=== PATIENT | male | born 1940 | race Caucasian/White ===

== ENCOUNTER 2016-11-06 03:39 | Emergency (ER) | payer OTHER ==
[~2016-11-06] VITALS: Ht 175.3 cm; Wt 63.5 kg
[~2016-11-06 03:39] MED LIST: ALPR0.25 PO; ASPI81TA2 PO; CHOL100013 PO; IBUP-1027 PO; MULT1TAB52 PO; POLY17PO5 PO
[2016-11-06] MEDS ORDERED: LORAZEPAM 1 MG TABLET. PO ONE (04:30)
[2016-11-06 05:06] LABS: BASO # 0.1 x10^3/uL (0.0-0.2); BASO % 0 % (0-3); EOS % 1 % (0-3); HEMATOCRIT 41.9 % (39.0-53.0); HEMOGLOBIN 13.9 g/dL (13.0-17.5); LYMPH # 0.8 x10^3/uL (1.0-4.8); LYMPH % 7 % (24-48); MEAN CORPUSCULAR HEMOGLOBIN 30 pg (25-35); MEAN CORPUSCULAR HGB CONC 33 g/dL (31-37); MEAN CORPUSCULAR VOLUME 92 fL (79-100); MONO % 9 % (0-9); NEUT % 83 % (31-73); PLATELET COUNT 168 x10^3/uL (140-400); RED BLOOD COUNT 4.56 x10^6/uL (4.30-5.70); WHITE BLOOD COUNT 12.1 x10^3/uL (4.0-11.0)
[2016-11-06 05:19] LABS: CREATININE 0.8 mg/dL (0.7-1.3); GFR 93.7; POTASSIUM 4.3 mmol/L (3.5-5.1)
[2016-11-06 05:25] LABS: ALBUMIN 4.1 g/dL (3.4-5.0); DIRECT BILIRUBIN 0.1 mg/dL (0.0-0.2); TOTAL BILIRUBIN 0.4 mg/dL (0.2-1.0); TOTAL PROTEIN 6.9 g/dL (6.4-8.2)
--- NOTE | 2016-11-06 05:41 | PHYS DOC ---
Past Medical History Past Medical History: Anxiety, Other Additional Past Medical Histor: Chronic back pain - spinal stenosis, fainting spells, prostate CA, hernia Past Surgical History: Other Additional Past Surgical Histo: Prostate surgery, hernia repair Alcohol Use: None Drug Use: None Adult General Chief Complaint Chief Complaint: ANXIETY/PANIC ATTACK HPI HPI 76-year-old male presenting to the emergency department today complaining of anxiety. He reports taking Xanax for his anxiety which improved his symptoms. He also reports having a fast heart rate but denies chest pain or shortness of breath. He has a history of anxiety however he does not have a history of fast heart rate. Onset today. Location generalized/heart/brain. Duration intermittent. No alleviating factors. Review of systems is negative for chest pain shortness of breath nausea vomiting diaphoresis abdominal pain fevers or chills. He denies cough. All other review of systems is negative unless otherwise noted in history of present illness. Review of Systems Review of Systems SEE ABOVE. Current Medications Current Medications Current Medications Medications (Trade) Dose Ordered Sig/Satish Start Time Stop Time Status Last Admin Dose Admin Lorazepam (Ativan) 1 mg 1X ONCE 11/06/16 04:30 11/06/16 04:31 DC 11/06/16 04:46 1 MG Allergies Allergies Allergies Coded Allergies Type Severity Reaction Last Updated Verified No Known Drug Allergies 08/29/14 No Physical Exam Physical Exam Constitutional: Well developed, well nourished, no acute distress, non-toxic appearance. HENT: Normocephalic, atraumatic, bilateral external ears normal, oropharynx moist, no oral exudates, nose normal. [] Eyes: PERRLA, EOMI, conjunctiva normal, no discharge. Neck: Normal range of motion, no tenderness, supple, no stridor. Cardiovascular: Mild tachycardic with a regular rhythm. No murmur present. Lungs & Thorax: Bilateral breath sounds clear to auscultation Abdomen: Bowel sounds normal, soft, no tenderness, no masses, no pulsatile masses. [] Skin: Warm, dry, no erythema, no rash. Back: No tenderness, no CVA tenderness. [] Extremities: No tenderness, no cyanosis, no clubbing, ROM intact, no edema. Neurologic: Alert and oriented X 3, normal motor function, normal sensory function, no focal deficits noted. [] Psychologic: Affect normal, judgement normal, mood normal. [] Current Patient Data Vital Signs Vital Signs Date Time Temp Pulse Resp B/P Pulse Ox O2 Delivery O2 Flow Rate FiO2 11/06/16 05:54 106 20 121/71 98 Room Air 11/06/16 03:48 98.9 98.9 Lab Values Laboratory Tests Test 11/06/16 04:50 White Blood Count 12.1x10^3/uL (4.0-11.0) H Red Blood Count 4.56x10^6/uL (4.30-5.70) Hemoglobin 13.9g/dL (13.0-17.5) Hematocrit 41.9% (39.0-53.0) Mean Corpuscular Volume 92fL (79-100) Mean Corpuscular Hemoglobin 30pg (25-35) Mean Corpuscular Hemoglobin Concent 33g/dL (31-37) Red Cell Distribution Width 13.0% (11.5-14.5) Platelet Count 168x10^3/uL (140-400) Neutrophils (%) (Auto) 83% (31-73) H Lymphocytes (%) (Auto) 7% (24-48) L Monocytes (%) (Auto) 9% (0-9) Eosinophils (%) (Auto) 1% (0-3) Basophils (%) (Auto) 0% (0-3) Neutrophils # (Auto) 10.0x10^3uL (1.8-7.7) H Lymphocytes # (Auto) 0.8x10^3/uL (1.0-4.8) L Monocytes # (Auto) 1.1x10^3/uL (0.0-1.1) Eosinophils # (Auto) 0.1x10^3/uL (0.0-0.7) Basophils # (Auto) 0.1x10^3/uL (0.0-0.2) Sodium Level 140mmol/L (136-145) Potassium Level 4.3mmol/L (3.5-5.1) Chloride Level 104mmol/L (98-107) Carbon Dioxide Level 30mmol/L (21-32) Anion Gap 6 (6-14) Blood Urea Nitrogen 13mg/dL (8-26) Creatinine 0.8mg/dL (0.7-1.3) Estimated GFR (Cockcroft-Gault) 93.7 Glucose Level 106mg/dL (70-99) H Calcium Level 9.0mg/dL (8.5-10.1) Total Bilirubin 0.4mg/dL (0.2-1.0) Direct Bilirubin 0.1mg/dL (0.0-0.2) Aspartate Amino Transferase (AST) 33U/L (15-37) Alanine Aminotransferase (ALT) 47U/L (16-63) Alkaline Phosphatase 62U/L (46-116) Troponin I Quantitative < 0.017ng/mL (0.000-0.055) Total Protein 6.9g/dL (6.4-8.2) Albumin 4.1g/dL (3.4-5.0) Lipase 168U/L (73-393) Laboratory Tests 11/06/16 04:50 Laboratory Tests 11/06/16 04:50 EKG EKG [] EKG shows sinus tachycardia. Not suggestive of ischemia. Radiology/Procedures Radiology/Procedures [] Course & Med Decision Making Course & Med Decision Making Pertinent Labs and Imaging studies reviewed. (See chart for details) [] 76-year-old male presenting to the emergency department today with anxiety and tachycardia. Vital signs otherwise were unremarkable. Afebrile. Physical exam otherwise unremarkable. EKG showed sinus tachycardia. Chest x-ray unremarkable. Blood work obtained which was unremarkable. Ativan given which improved the patient's symptoms. His heart rate did not improve with the Ativan. Patient was not in pain. Euvolemic on exam. He denied shortness of breath chest pain unilateral leg swelling hemoptysis personal or family history of blood clotting disorders. The patient was then subsequently discharged home to follow up with his primary care doctor over the next day or 2 for tachycardia. Dragon Disclaimer Dragon Disclaimer This electronic medical record was generated, in whole or in part, using a voice recognition dictation system. Departure Departure Impression: Primary Impression: Tachycardia Disposition: HOME, SELF-CARE Condition: STABLE Referrals: LUI SIMMONS MD (PCP) Patient Instructions: Nonspecific Tachycardia Additional Instructions: Thank you for allowing us to participate in your care today. Take your Xanax as needed for anxiety at home. Followup with your primary care physician in tomorrow or the next day. If you do not have a primary care provider you can ask for a list of our primary care providers. Return to the emergency department you have any new or concerning findings. This should be evaluated by the primary care physician and any necessary consulting services for continued management within a few days after discharge. Return to emergency room if you have any new or concerning symptoms including but not limited to fever, chills, nausea, vomiting, intractable pain, any new rashes, chest pain, shortness of air, uncontrolled bleeding, difficulty breathing, and/or vision loss. Scripts Lorazepam (Ativan)0.5 Mg Tablet0.5 Mg PO PRN BID PRN ANXIETY / AGITATION #5 TAB Prov:LAILA JENKINS MD 11/06/16 LAILA JENKINS MD Nov 06, 2016 05:41
[2016-11-06] MEDS ORDERED: LORA0.5T96 PO (05:48)
[2016-11-06 05:54] VITALS: BP 121/71
--- NOTE | 2016-11-06 06:42 | EKG ---
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
--- NOTE | 2016-11-06 07:12 | RAD ---
Portable AP upright view CXR: Clinical indications: Tachycardia tonight. Comparison: August 29, 2014. Findings: No acute lung infiltrate or pleural effusion or pulmonary edema or lung mass or pneumothorax is seen. The heart size, pulmonary vasculature, mediastinum and both stacia are unremarkable. Impression: No acute radiographic abnormality is seen.
== END 2016-11-06 06:10 | disposition home or self-care (01) ==
LOC: ER 03:39
DX: R00.0 Tachycardia, unspecified (principal); F41.9 Anxiety disorder, unspecified; G89.29 Other chronic pain
CPT/HCPCS: 36415; 71010; 80048; 80076; 83690; 84484; 85027; 93005; 99285-25

== ENCOUNTER → 2018-01-24 | Outpatient (CLI) | payer OTHER | END | disposition home or self-care (01) | LOC: KCIC MRI 14:28 | DX: M51.37 Other intervertebral disc degeneration, lumbosacral region (principal); M48.061 Spinal stenosis, lumbar region without neurogenic claudication; M43.16 Spondylolisthesis, lumbar region | CPT/HCPCS: 72148 ==

== ENCOUNTER → 2018-02-15 | Outpatient (CLI) | payer OTHER | END | disposition home or self-care (01) | LOC: KCIC 16:03 | DX: M43.16 Spondylolisthesis, lumbar region (principal); M40.46 Postural lordosis, lumbar region | CPT/HCPCS: 72100 ==

== ENCOUNTER → 2018-03-07 | Outpatient (CLI) | payer OTHER ==
[2018-03-08 22:16] LABS: MRSA BY PCR Negative (Negative)
== END | disposition home or self-care (01) ==
LOC: SURGPAT 13:40
DX: Z01.818 Encounter for other preprocedural examination (principal); Z86.79 Personal history of other diseases of the circulatory system
CPT/HCPCS: 87641; 93005

== ENCOUNTER 2018-03-16 10:15 | Observation (INO) | payer OTHER ==
[~2018-03-16 10:15] MED LIST changes: -ALPR0.25 PO; -ASPI81TA2 PO; -CHOL100013 PO; -IBUP-1027 PO; +LIDOCAINE 1% PF 2 ML VIAL. ID; +MIDAZOLAM HCL/PF 2 MG/2 ML VIAL.; +MORPHINE SULFATE 2 MG/ML DISP.SYRIN. IV; -MULT1TAB52 PO; +ONDANSETRON PF 4 MG/2 ML VIAL. IV; -POLY17PO5 PO; +REMIFENTANIL 2 MG VIAL. IV; +ROCURONIUM 50 MG/5 ML VIAL.; +fentaNYL PF VIAL 100 MCG/2 ML VIAL IV; +fentaNYL PF VIAL 250 MCG/5 ML VIAL
[2018-03-16] MEDS: IV RINGERS,LACTATED 1000ML 1,000 ML IV (11:11)
[2018-03-16] MEDS: BACITRACIN 50,000 UNIT in IV NORMAL SALINE 1000ML BAG 1,000 ML IRR (12:45)
[2018-03-16] MEDS: KETOROLAC 60 MG/2 ML INJ FOR OR. (12:45)
[2018-03-16] MEDS: BUPIVAC MPF-EPI 0.5%-1:200000 30 ML VIAL. INJ (12:45)
[2018-03-16] MEDS: GELATIN SPONGE SIZE 100. (12:45)
[2018-03-16] MEDS: THROMBIN TOPICAL 20,000 UNIT SPRAY.SYRN KIT TP (12:45)
[2018-03-16] MEDS ORDERED: DESFLURANE > 120 MINUTES IH (14:53)
[2018-03-16] MEDS ORDERED: MINERAL OIL/PETROLATUM,WHITE OPHTH OINT 3.5GM TUBE. (14:53)
[2018-03-16] MEDS ORDERED: LIDOCAINE 2% PF Vial for OR 5 ML VIAL. (14:53)
[2018-03-16] MEDS ORDERED: PROPOFOL 50 ML IV (14:53)
[2018-03-16] MEDS ORDERED: PROPOFOL 20 ML IV (14:53)
[2018-03-16] MEDS ORDERED: PHENYLEPHRINE 10 MG/ML VIAL. (14:54)
[2018-03-16] MEDS ORDERED: PHENYLEPHRINE in 0.9% NACL PF 1 MG/10 ML SYRINGE. IV (14:54)
[2018-03-16] MEDS ORDERED: ONDANSETRON PF 4 MG/2 ML VIAL. (14:54)
[2018-03-16] MEDS ORDERED: NEOSTIGMINE METHYLSULFATE 5 MG/5 ML SYRINGE. (14:58)
[2018-03-16] MEDS ORDERED: GLYCOPYRROLATE 1 MG/5 ML VIAL. ×2 (14:58→14:59)
[2018-03-16] MEDS: fentaNYL PF VIAL 100 MCG/2 ML VIAL IV ×4 (15:36→21:28)
[2018-03-16] MEDS: PROCHLORPERAZINE 10 MG/2 ML VIAL. IV ×2 (15:40→16:15)
[2018-03-16] MEDS ORDERED: MEPERIDINE PF 25 MG/ML VIAL. (16:35)
[2018-03-16] MEDS: MEPERIDINE PF 25 MG/ML VIAL. IV (16:44)
[2018-03-16] MEDS ORDERED: ONDANSETRON PF 4 MG/2 ML VIAL. IV (16:45)
[2018-03-16] MEDS ORDERED: diphenhydrAMINE 50 MG/ML VIAL IV (16:45)
[2018-03-16] MEDS ORDERED: MAG HYDROX/ALUMINUM HYD/SIMETH 30 ML ORAL.SUSP PO (16:45)
[2018-03-16] MEDS ORDERED: ACETAMINOPHEN 325 MG TABLET. PO (16:45)
[2018-03-16] MEDS ORDERED: MAGNESIUM HYDROXIDE 2,400 MG/30 ML ORAL.SUSP. PO (16:45)
[2018-03-16] MEDS ORDERED: CALCIUM CARBONATE 500 MG TAB.CHEW PO (16:45)
[2018-03-16] MEDS ORDERED: 0.9 % SODIUM CHLORIDE 10 ML DISP.SYRIN. IV (16:45)
[2018-03-16] MEDS: ALPRAZolam 0.25 MG TABLET PO ×2 (18:15→21:27)
[2018-03-16] MEDS: POTASSIUM CL 20MEQ D5-0.45NACL 1,000 ML IV (19:15)
[2018-03-16] MEDS ORDERED: DOCUSATE SODIUM 100 MG CAPSULE. PO (21:00)
[2018-03-16] MEDS: DOCUSATE SODIUM 100 MG CAPSULE. PO (21:27)
[2018-03-16] MEDS: IBUPROFEN 400 MG TABLET. PO (22:30)
[2018-03-16] MEDS: diphenhydrAMINE HCL 25 MG CAPSULE PO (22:30)
[2018-03-17] MEDS: fentaNYL PF VIAL 100 MCG/2 ML VIAL IV ×4 (00:23→07:53)
[2018-03-17] MEDS: POTASSIUM CL 20MEQ D5-0.45NACL 1,000 ML IV (05:35)
[2018-03-17] MEDS: ASPIRIN CHEWABLE 81 MG TABLET. PO (07:52)
[2018-03-17] MEDS: DOCUSATE SODIUM 100 MG CAPSULE. PO (07:52)
[2018-03-17] MEDS: POLYETHYLENE GLYCOL 3350 17 GM PACKET. PO (07:52)
[2018-03-17] MEDS: MULTIVITAMIN with MINERAL TABLET. PO (07:52)
[2018-03-17] MEDS: OMEGA-3 FATTY ACIDS/FISH OIL 1,000 MG CAPSULE. PO (07:52)
[2018-03-17] MEDS: IBUPROFEN 400 MG TABLET. PO (07:52)
[2018-03-17] MEDS: CHOLECALCIFEROL (VITAMIN D3) 1,000 UNIT TABLET PO (07:53)
[2018-03-17] MEDS: ALPRAZolam 0.25 MG TABLET PO (07:53)
[2018-03-17] MEDS ORDERED: NON FORMULARY ITEM (Turmeric/Turmeric Root Extract (Turmeric 500 mg Capsule) 1 EACH) PO (09:00)
[2018-03-17] MEDS ORDERED: HYDROcodone/APAP 7.5/325MG 1 TAB TABLET PO (09:30)
[2018-03-17] MEDS: HYDROcodone/APAP 7.5/325MG 1 TAB TABLET PO (11:39)
[2018-03-17] MEDS ORDERED: TAMSULOSIN 0.4 MG CAP.ER.24H. PO (14:00)
== END 2018-03-17 12:45 | disposition home or self-care (01) ==
LOC: SURG 10:15 → 4 SOUTHEST 17:04
DX: M48.062 Spinal stenosis, lumbar region with neurogenic claudication (principal); M43.16 Spondylolisthesis, lumbar region; H40.9 Unspecified glaucoma; M21.379 Foot drop, unspecified foot; Z82.0 Family history of epilepsy and other diseases of the nervous system
CPT/HCPCS: 63047; 76000; 88304; 88311; 96374; 96376; 97110-GP; 97116-GP; 97162-GP; 97530-GP; A7015; G0378; G0379; G8978-CJ-GP; G8979-CI-GP; G8980-CI-GP; J0690; J0780; J1885; J2001; J2175; J2250; J2270; J2370; J2405; J2704; J2710; J3010; J3490; J7030; J7120; Q0163